=== PATIENT | female | born 1995 | race Caucasian/White ===

== ENCOUNTER 2024-04-07 08:19 | Outpatient (CLI) | payer BC ==
[2024-04-07] MEDS ORDERED: Iopamidol 300 61% 100 ML VIAL FS ONE (11:04)
== END 2024-04-07 08:20 | disposition home or self-care (01) ==
LOC: CSHCT 08:19
PROVIDERS: ATTEND Physician Assistant Medical
DX: R19.7 Diarrhea, unspecified (principal); R11.2 Nausea with vomiting, unspecified; K31.84 Gastroparesis; R63.4 Abnormal weight loss; N83.202 Unspecified ovarian cyst, left side
CPT/HCPCS: 74177